=== PATIENT | male | born 1985 | race African-American/Black ===

== ENCOUNTER 2019-07-22 09:12 | Emergency (ER) | payer SELFPAY ==
[~2019-07-22] VITALS: Ht 177.8 cm; Wt 136.1 kg
[2019-07-22 15:10] VITALS: BP 147/86
[2019-07-22] MEDS ORDERED: METHOCARBAMOL 500 MG TAB PO ONE (15:30)
[2019-07-22] MEDS ORDERED: KETOROLAC TROMETH 60MG/2ML VIAL IM ONE (15:30)
== END 2019-07-22 16:24 | disposition home or self-care (01) ==
LOC: ER 09:12
DX: J03.90 Acute tonsillitis, unspecified (principal)
CPT/HCPCS: 72040; 96372; 99283; J1885

== ENCOUNTER 2019-07-24 03:00 | Emergency (ER) | payer SELFPAY ==
[~2019-07-24] VITALS: Ht 180.3 cm; Wt 147.4 kg
[2019-07-24 04:55] VITALS: BP 149/89
[2019-07-24] MEDS ORDERED: DexAMETHasone SOD PHOS 10MG/1ML VIAL INJ IM ONE (05:00)
[2019-07-24] MEDS ORDERED: HYDROcodone-ACET 10/325MG TAB PO ONE (05:00)
== END 2019-07-24 05:44 | disposition home or self-care (01) ==
LOC: ER 03:04
DX: S16.1XXA Strain of muscle, fascia and tendon at neck level, initial encounter (principal); W19.XXXA Unspecified fall, initial encounter; Y93.89 Activity, other specified; Y99.8 Other external cause status; Y92.89 Other specified places as the place of occurrence of the external cause
CPT/HCPCS: 96372; 99283; J1100

== ENCOUNTER → 2019-09-14 | Outpatient (CLI) | payer BC ==
[2019-09-14 12:05] LABS: Basophils # (auto) 0 uL; Basophils % (auto) 0.8 % (0.0-2.0); Eosinophils # (auto) 0.3 uL; Hematocrit 44.1 % (41.0-53.0); Hemoglobin 15.2 g/dL (13.5-17.5); Lymphocytes # (auto) 2.6 uL; Lymphocytes % (auto) 46.9 % (10.0-50.0); Mean Corpuscular Hemoglobin 31.1 pg (28.0-32.0); Mean Corpuscular Hgb Conc. 34.4 g/dL (32.0-36.0); Mean Corpuscular Volume 90.5 fL (80.0-100.0); Monocytes # (auto) 0.4 uL; Monocytes % (auto) 7.1 % (0.0-12.0); Neutrophils # (auto) 2.2 uL; Neutrophils % (auto) 40.2 % (37.0-80.0); Platelet Count (auto) 216 10^3/uL (140-450); Red Blood Cells 4.87 10^6/uL (4.5-5.90); Red Cell Distribution Width 13.9 % (11.8-14.3); White Blood Cell 5.5 10^3/uL (4.4-10.8)
[2019-09-14 12:20] LABS: Potassium 3.9 mmol/L (3.5-5.1)
[2019-09-14 12:28] LABS: BUN/Creatinine Ratio 12.1; Bilirubin, Total 0.3 mg/dL (0.2-1.0); Calcium 9.2 mg/dL (8.5-10.1)
== END | disposition home or self-care (01) ==
LOC: LAB 11:09
PROVIDERS: ATTEND Internal Medicine
DX: K92.1 Melena (principal); E78.5 Hyperlipidemia, unspecified; I10 Essential (primary) hypertension
CPT/HCPCS: 36415; 80053; 80061; 84443; 85025

== ENCOUNTER → 2019-09-28 | Outpatient (CLI) | payer BC | END | disposition home or self-care (01) | LOC: LAB 12:41 | PROVIDERS: ATTEND Internal Medicine | DX: I10 Essential (primary) hypertension (principal) | CPT/HCPCS: 82270 ==

== ENCOUNTER → 2020-01-24 | Outpatient (CLI) | payer OTHER | END | disposition home or self-care (01) | LOC: LAB 09:50 | PROVIDERS: ATTEND Preventive Medicine Preventive Medicine/Occupational Environmental Medicine | DX: Z20.1 Contact with and (suspected) exposure to tuberculosis (principal) | CPT/HCPCS: 36415; 86706; 86735; 86762; 86765; 86787 ==

== ENCOUNTER → 2020-12-19 | Outpatient (CLI) | payer BC | END | disposition home or self-care (01) | LOC: LAB 16:25 | PROVIDERS: ATTEND Physician Assistant | DX: Z20.822 Contact with and (suspected) exposure to COVID-19 (principal) | CPT/HCPCS: C9803; U0003 ==

== ENCOUNTER 2021-10-21 09:00 | Outpatient (CLI) | payer BC ==
[~2021-10-21] VITALS: Ht 177.8 cm; Wt 163.3 kg
[~2021-10-21 09:00] MED LIST: NORPTMEDS CO
[2021-10-21 11:57] LABS: INR 0.99 (0.9-1.15); Partial Thromboplastin Time 39.1 sec (23.6-33.0)
[2021-10-21 13:46] LABS: Basophils # (auto) 0 10 ^3/uL (0-0.2); Basophils % (auto) 0.6 % (0.0-2.0); Eosinophils # (auto) 0.1 10 ^3/uL (0-0.8); Eosinophils % (auto) 2.3 % (0.0-7.0); Hematocrit 44.2 % (41.0-53.0); Hemoglobin 14.9 g/dL (13.5-17.5); Lymphocytes % (auto) 43.7 % (10.0-50.0); Mean Corpuscular Hemoglobin 29.8 pg (28.0-32.0); Mean Corpuscular Hgb Conc. 33.6 g/dL (32.0-36.0); Mean Corpuscular Volume 88.5 fL (80.0-100.0); Monocytes # (auto) 0.5 10 ^3/uL (0-1.3); Monocytes % (auto) 11.3 % (0.0-12.0); Neutrophils # (auto) 1.9 10 ^3/uL (1.6-8.6); Neutrophils % (auto) 42.1 % (37.0-80.0); Nucleated Red Blood Cells % 0.1 %; Red Blood Cells 4.99 10^6/uL (4.5-5.90); Red Cell Distribution Width 13.9 % (11.8-14.3); White Blood Cell 4.5 10^3/uL (4.4-10.8)
[2021-10-21 14:25] LABS: Albumin 4.3 g/dL (3.4-5.0); BUN/Creatinine Ratio 10.8; Bilirubin, Total 0.6 mg/dL (0.2-1.0); Calcium 9.2 mg/dL (8.5-10.1)
== END 2021-10-21 09:22 | disposition home or self-care (01) ==
LOC: LAB 09:00 → EDSTATUS 10-24 13:15
PROVIDERS: ATTEND Internal Medicine Gastroenterology
DX: K62.5 Hemorrhage of anus and rectum (principal)
CPT/HCPCS: 36415; 80053; 85025; 85610; 85730; U0003

== ENCOUNTER 2021-12-26 08:40 | Day surgery (SDC) | payer BC ==
[2021-12-24 07:22] LABS: Basophils # (auto) 0 10 ^3/uL (0-0.2); Basophils % (auto) 0.7 % (0.0-2.0); Eosinophils # (auto) 0.2 10 ^3/uL (0-0.8); Eosinophils % (auto) 3.4 % (0.0-7.0); Hematocrit 41.1 % (41.0-53.0); Hemoglobin 13.8 g/dL (13.5-17.5); Lymphocytes # (auto) 2.6 10 ^3/uL (0.4-5.4); Lymphocytes % (auto) 42.6 % (10.0-50.0); Mean Corpuscular Hemoglobin 29.7 pg (28.0-32.0); Mean Corpuscular Hgb Conc. 33.5 g/dL (32.0-36.0); Mean Corpuscular Volume 88.7 fL (80.0-100.0); Monocytes # (auto) 0.4 10 ^3/uL (0-1.3); Neutrophils # (auto) 2.8 10 ^3/uL (1.6-8.6); Neutrophils % (auto) 46.3 % (37.0-80.0); Red Blood Cells 4.63 10^6/uL (4.5-5.90); Red Cell Distribution Width 13.8 % (11.8-14.3)
[2021-12-24 07:46] LABS: INR 0.99 (0.9-1.15); Partial Thromboplastin Time 35.9 sec (23.6-33.0)
[2021-12-24 07:56] LABS: Albumin 3.8 g/dL (3.4-5.0); BUN/Creatinine Ratio 11.1; Bilirubin, Total 0.3 mg/dL (0.2-1.0); Total Protein 7.6 g/dL (6.4-8.2)
[~2021-12-26] VITALS: Ht 177.8 cm; Wt 158.8 kg
[2021-12-26] MEDS ORDERED: KETAMINE 50mg/ML 10ml Vial (500mg/10ml) IV ONE (08:41)
[2021-12-26] MEDS ORDERED: MIDAZOLAM HCL 2MG/2ML 2ml VIAL (1mg/ml) ONE (09:29)
[2021-12-26] MEDS ORDERED: GLYCOPYRROLATE 0.2 MG/ML 1ML VIAL ONE (09:29)
[2021-12-26] MEDS ORDERED: ONDANSETRON HCL 4 MG/2 ML VIAL ONE (09:29)
[2021-12-26] MEDS ORDERED: PROPOFOL 10 MG/ML 20 ML IV ONE (09:29)
[2021-12-26] MEDS ORDERED: fentaNYL CITRATE 100 MCG/2 ML VL IV PRN (10:15)
[2021-12-26] MEDS ORDERED: ONDANSETRON HCL 4 MG/2 ML VIAL IV PRN (10:15)
[2021-12-26 10:20] VITALS: BP 147/98
== END 2021-12-26 11:00 | disposition home or self-care (01) ==
LOC: GI 08:40
PROVIDERS: ATTEND Internal Medicine Gastroenterology
DX: K62.5 Hemorrhage of anus and rectum (principal); K63.5 Polyp of colon; K57.30 Diverticulosis of large intestine without perforation or abscess without bleeding; K64.8 Other hemorrhoids; F17.200 Nicotine dependence, unspecified, uncomplicated; Z20.822 Contact with and (suspected) exposure to COVID-19
CPT/HCPCS: 36415; 45385; 80053; 85025; 85610; 85730; 88305; J2250; J2405; J2704; J7030; U0003

== ENCOUNTER 2022-03-16 08:42 | Emergency (ER) | payer BC ==
[2022-03-16 12:09] VITALS: BP 145/96
[2022-03-16] MEDS ORDERED: KETOROLAC TROMETH 60MG/2ML VIAL IM ONE (12:15)
[2022-03-16] MEDS ORDERED: CYCL-837 PO (12:18)
[2022-03-16] MEDS ORDERED: IBUP800T27 PO (12:18)
== END 2022-03-16 12:47 | disposition home or self-care (01) ==
LOC: ER 08:42
DX: S46.912A Strain of unspecified muscle, fascia and tendon at shoulder and upper arm level, left arm, initial encounter (principal); F17.210 Nicotine dependence, cigarettes, uncomplicated; Z79.1 Long term (current) use of non-steroidal anti-inflammatories (NSAID); Z79.899 Other long term (current) drug therapy; X58.XXXA Exposure to other specified factors, initial encounter; Y93.89 Activity, other specified; Y92.89 Other specified places as the place of occurrence of the external cause; Y99.8 Other external cause status
CPT/HCPCS: 71046; 96372; 99283; J1885